=== PATIENT | female | born 1980 | race Caucasian/White ===

== ENCOUNTER 2024-06-09 06:30 | Emergency (ER) | payer OTHER, SELFPAY ==
[2024-06-09 06:32] VITALS: BP 162/96
--- NOTE | 2024-06-09 07:31 | ED.GENMED ---
History of Present Illness
General
Chief Complaint: Vaginal Bleeding
Source: patient
Exam Limitations: none
Time Seen by Provider: 06/09/24 07:21
History of Present Illness
History of Present Illness:
43-year-old female presents with abdominal cramping and abnormal vaginal bleeding. She had a normal cycle between May 23 and May 30 and started bleeding again 4 days ago. She notes heavy bleeding times passing large clots and changing tampons
frequently. She denies lightheadedness or shortness of breath. She does also complain of upper abdominal pain and pain that wraps underneath her ribs. She denies any pleuritic component. Every now and then she also feels some chest discomfort
but this is random. She has been moving her bowels and urinating normally. No fevers. She is on levothyroxine 80 mcg daily.
Past History
Past History
ED Past Medical History: Hypothyroidism
ED Past Surgical History: None
Social History
Tobacco: Non-smoker
Alcohol: None
Drug: None
Personal:
Living: with family
Employment: Employed
Phy Exam
Physical Exam
Physical Exam:
General: Well-appearing female no acute respiratory distress HEENT: Normocephalic atraumatic
Heart: Regular rate and rhythm no murmurs
Lungs: Clear no wheeze or rales
Abdomen is soft slightly tender to the lower abdominal areas bilaterally as well as the epigastric and right upper quadrant. Negative Koch sign. No guarding or rebound.
Extremities: No cyanosis edema
Skin: Warm no rash
Course
Orders/Labs/Results
Orders:
Orders
06/09/24 07:18
Test Result ONCE
06/09/24 07:23
Beta Hcg Serum Qualitative Screen [HCG, Serum Qualitative Screen] Urgent
Complete Blood Count/With Diff Urgent
Comprehensive Metabolic Panel Urgent
Lipase Urgent
06/09/24 07:29
Electrocardiogram (*1) Urgent
Reason for Study: Chest Pain
EKG- Treatment ONCE
US Abdomen Complete/Upper Urgent
Comment:
Reason For Exam: upper abdominal pain
US Pelvis W Transvag Combined Urgent
Comment:
Reason For Exam: abnormal bleeding
06/09/24 07:38
Troponin I Urgent
06/09/24 08:00
0.9% Sodium Chloride 1000 ml [Nss] 1,000 ml IV Wide Open mls/hr
06/09/24 10:42
Urinalysis Reflex To Culture Urgent
Date Specimen was Collected: 06/09/24
Time Specimen was Collected: 10:52
Abnormal Lab Results
06/09/24
07:23
Hct 36.7 L %
(37.0-47.0)
Abs Immat Gran (auto) 0.1 H 10^3/uL
(0-0.05)
Immature Gran % 1.1 H %
(0-0.5)
Glucose 112 H mg/dl
(70-99)
06/09/24 07:23
06/09/24 07:23
Vital Signs
Initial and Last Documented VS:
Initial Vital Signs
Temp Pulse Resp BP Pulse Ox
98.2 F 91 16 162/96 100
06/09/24 06:32 06/09/24 06:32 06/09/24 06:32 06/09/24 06:32 06/09/24 06:32
Last Documented Vital Signs
Temp Pulse Resp BP Pulse Ox
98.2 F 82 17 117/75 97
06/09/24 06:32 06/09/24 10:00 06/09/24 10:00 06/09/24 10:00 06/09/24 10:00
MDM/Problems Addressed
Differential Diagnosis Includes:
Abnormal vaginal bleeding. Consider anemia versus fibroid. Ultrasound pelvis pending. Patient also has upper abdominal pain that may be unrelated to her vaginal bleeding. Gastritis versus biliary colic versus constipation also consideration.
Check labs. Ultrasound pelvis and abdomen pending.
*Critical Care Note
Total Time (30-74mins, 75-104mins- exclusive of procedures): Not Applicable
Update Note
Update Note:
Ultrasound pelvis shows 2 fibroids. Ultrasound abdomen without significant finding. Labs reviewed she is not anemic electrolytes look well. Patient reexamined still looks nontoxic and is stable. I suspect irregular bleeding may be related to the
fibroids however her upper abdominal pain may be related to gastritis. Lipase was normal here. Recommended omeprazole for her abdominal discomfort and recommended gynecology follow-up for her irregular bleeding and fibroids. Stable for discharge.
ED Attending Note
-
Portions of this chart may have been created with voice recognition software.� Occasional wrong word or��sound alike� substitutions may have occurred due to the inherent limitations of voice recognition software.
Discharge Plan
Departure
Patient Disposition: Home (Routine Discharge)
Date of Disposition: 06/09/24
Time of Disposition: 11:01
Patient with high blood pressure during this ER visit?: No
Discharge Problem:
Fibroid, Abdominal pain
Instructions: Uterine fibroids
Prescriptions:
No Action
No Current Medications
0
Referrals:
Annika Lim PA [Family Provider] -
Activity Restrictions/Additional Instructions:
Consider using omeprazole daily for the upper abdominal pain. Please follow-up with your vendor specialist for further evaluation regarding your abnormal bleeding and uterine fibroids
Interventions
Interventions:
*Risk Screen - Suicide Last Done: 06/09/24 07:29
*General Assessment Last Done: 06/09/24 07:29
*Neglect/Abuse Screening Last Done: 06/09/24 07:29
ED- Fall Risk Assessment Last Done: 06/09/24 07:29
ED-Female Genitourinary Assessment Last Done: 06/09/24 07:29
Discharge Date and Time
Print Language: IRISH
[2024-06-09 07:50] LABS: % Basophils 0.9 % (0-2); % Eosinophils 2.4 % (0-6); % Immature Granulocytes 1.1 % (0-0.5); % Lymphocytes 20.5 % (20.5-51.1); % Monocytes 8.5 % (1.7-9.3); % Neutrophils 66.6 % (42.2-75.2); Absolute Basophils 0.1 10^3/uL (0-0.2); Absolute Eosinophils 0.2 10^3/uL (0-0.7); Absolute Immature Granulocytes 0.1 10^3/uL (0-0.05); Absolute Lymphocytes 1.3 10^3/uL (1.2-3.4); Absolute Monocytes 0.6 10^3/uL (0.1-0.6); Absolute Neutrophils 4.4 10^3/uL (1.4-6.5); Hematocrit 36.7 % (37.0-47.0); Hemoglobin 12.3 g/dL (12.0-16.0); Mean Corp Hgb Conc. 33.5 g/dL (33.0-37.0); Mean Corpuscular Hgb 28.5 pg (27.0-31.0); Mean Platelet Volume 9.2 fL (7.4-10.4); Nucleated Red Blood Cells % 0 %; Platelet Count 343 10^3/uL (130-400); Red Blood Cell Count 4.32 10^6/uL (4.20-5.40); Red Cell Dist. Width 14.4 % (11.5-14.5); White Blood Cell Count 6.6 10^3/uL (4.8-10.8)
[2024-06-09] MEDS: NSS 1000 IV (07:50)
[2024-06-09 07:57] LABS: HCG, Serum Qualitative Screen Negative
[2024-06-09 08:00] LABS: ALT (SGPT) 29 U/L (0-35); AST (SGOT) 28 U/L (14-36); Albumin 4.2 g/dl (3.5-5.0); Alkaline Phosphatase 68 U/L (38-126); Blood Urea Nitrogen 12 mg/dl (7-17); Calcium 9.6 mg/dl (8.4-10.2); Carbon Dioxide 25 mmol/L (22-30); Chloride 105 mmol/L (98-107); Glucose 112 mg/dl (70-99); Potassium 4.2 mmol/L (3.5-5.1); Sodium 143 mmol/L (135-145); Total Bilirubin 0.3 mg/dl (0.2-1.3); eGFR > 60.00
[2024-06-09 08:11] LABS: Troponin I < 0.012 ng/ml
[2024-06-09 08:16] LABS: Lipase 43 U/L (23-300)
[2024-06-09 10:00] VITALS: BP 117/75
[2024-06-09 11:14] LABS: Urine Albumin Negative (Neg - Trace); Urine Bilirubin Negative (Negative); Urine Character Clear (Clear); Urine Color Yellow; Urine Glucose Negative (Negative); Urine Ketone Negative (Negative); Urine Leukocyte Negative (Negative); Urine Nitrite Negative (Negative); Urine Occult Blood 1+ (Negative); Urine Specific Gravity 1.005 (<1.030); Urine Urobilinogen Negative (Neg - 1+)
[2024-06-09 12:00] LABS: Urine Red Blood Cell 0-2 /HPF (0-2)
== END 2024-06-09 11:10 | disposition home or self-care (01) ==
LOC: EMR 06:30
PROVIDERS: Physician Assistant; EMERGENCY PHYSICIAN Emergency Medicine; FAMILY PHYSICIAN Physician Assistant Medical
DX: D25.9 Leiomyoma of uterus, unspecified (principal); R10.9 Unspecified abdominal pain; E03.9 Hypothyroidism, unspecified; R07.89 Other chest pain; Z79.890 Hormone replacement therapy
CPT/HCPCS: 99284; 76700; 76830; 76856; 80053; 81003; 81015; 83690; 84484; 84703; 85025; 93005

== ENCOUNTER 2024-07-17 14:52 | Emergency (ER) | payer OTHER, SELFPAY ==
[2024-07-17 14:56] VITALS: BP 134/96
--- NOTE | 2024-07-17 15:25 | ED.GENMED ---
History of Present Illness
General
Chief Complaint: Vaginal Bleeding
Source: patient
Exam Limitations: none
Time Seen by Provider: 07/17/24 15:23
Nursing documentation reviewed up to this point in time: agreed with
History of Present Illness
History of Present Illness:
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 Patient states that she is currently on her period most likely is having
heavy bleeding. Patient states that 2 years ago this all started when she first started having heavier periods. She then noted that in May when she had her period, it was so heavy that when she would walk, she would bleed onto the floor and
would pass many clots. She reported to the emergency department on June 09, 2024 and had a ultrasound done which showed thickened endometrial stripe with causes being possible underlying fibroids or polyps. Patient subsequently had cytotec on
July 14 in prep to have a follow-up hysterosonogram with her OBGYN Dr. Harris on July 16. She noted her bleeding returned after taking the Cytotec and notes that it is heavier than last ER visit and she currently has to use 2-3 pads her
hour. She also notes some mild dizziness. She takes oral iron supplementation. She denies syncopal episodes, chest pain, shortness of breath, nausea or vomiting. Also notes abnormal odor to her discharge within the past few days. Denies chance of
STDs/STIs, denies chance of .
Past History
Past History
ED Past Medical History: Hypothyroidism
ED Past Surgical History: None
Social History
Tobacco: Non-smoker
Alcohol: None
Drug: None
Personal:
Living: with family
Employment: Employed
Review of Systems
Review of Systems
All Other Systems: ROS reviewed and negative except as documented in HPI and ROS
Phy Exam
Physical Exam
Physical Exam:
General: Patient is well appearing and in no acute distress; non-toxic
Skin: Warm and dry, no rashes or lesions
Head: Normocephalic, atraumatic
Eyes: Sclera non-icteric. EOMs intact. PERRLA.
Cardiac: Slightly tachycardic otherwise regular rhythm, no murmurs
Peripheral Vascular: No lower extremity swelling or edema
Pulm: Normal respiratory effort, no wheezes, rales, rhonchi
Abdomen: Mild left-sided lower abdominal tenderness palpation
Genitourinary: Bleeding noted from the introitus. No brisk bleeding. No palpable masses on bimanual exam, left-sided adnexal tenderness.
Neuro: CN II-XII intact, no focal neurologic deficits.
Psychiatric: Appropriate mood and affect.
Course
Orders/Labs/Results
Orders:
Orders
07/17/24 15:01
Electrocardiogram (*1) Urgent
Reason for Study: Chest Pain
EKG- Treatment ONCE
07/17/24 15:24
Test Result ONCE
07/17/24 15:46
Type+Screen Urgent
Complete Blood Count/With Diff Urgent
Comprehensive Metabolic Panel Urgent
HCG, Serum Qualitative Screen Urgent
07/17/24 15:59
0.9% Sodium Chloride 1000 ml [Nss] 1,000 ml IV BOLUS
07/17/24 16:43
Genital Culture Urgent
CONSTANTIN Source: Vagina
Specimen Description:
Date Specimen was Collected: 07/17/24
Time Specimen was Collected: 16:35
07/17/24 17:33
Tranexamic Acid [Cyklokapron] 650 mg PO BID ONE
07/17/24 17:35
Tranexamic Acid [Cyklokapron] 650 mg PO BID ONE
Abnormal Lab Results
07/17/24
15:46
RBC 4.04 L 10^6/uL
(4.20-5.40)
Hgb 11.4 L g/dL
(12.0-16.0)
Hct 34.4 L %
(37.0-47.0)
RDW 14.6 H %
(11.5-14.5)
Abs Immat Gran (auto) 0.1 H 10^3/uL
(0-0.05)
Absolute Neuts (auto) 8.3 H 10^3/uL
(1.4-6.5)
Absolute Monos (auto) 0.7 H 10^3/uL
(0.1-0.6)
Immature Gran % 0.7 H %
(0-0.5)
Neutrophils % 77.7 H %
(42.2-75.2)
Lymphocytes % 13.5 L %
(20.5-51.1)
Carbon Dioxide 21 L mmol/L
(22-30)
Creatinine 0.5 L mg/dL
(0.6-1.0)
07/17/24 15:46
07/17/24 15:46
Vital Signs
Initial and Last Documented VS:
Initial Vital Signs
Temp Pulse Resp BP Pulse Ox
98.7 F 125 20 134/96 99
07/17/24 14:56 07/17/24 14:56 07/17/24 14:56 07/17/24 14:56 07/17/24 14:56
Last Documented Vital Signs
Temp Pulse Resp BP Pulse Ox
98.7 F 91 22 129/81 98
07/17/24 14:56 07/17/24 18:15 07/17/24 18:15 07/17/24 18:00 07/17/24 18:15
MDM/Problems Addressed
Differential Diagnosis Includes:
Differentials include uterine fibroids, menses, uterine polyp, abnormal uterine bleeding, ectopic
MDM/Problems Addressed:
43-year-old female with past medical history of Yan's thyroiditis presents emergency department today with concerns of heavy period. She is used 2-3 pads per hour. Had recent endometrial biopsy done yesterday. Awaiting results. She is due
for her period and has very heavy bleeding. She also felt some dizziness and lightheadedness which concerned her and so she reports emergency department. Today she is well-appearing on exam, she is not pale. She was tachycardic upon arrival to
emergency department but her blood pressure was stable. Her hemoglobin today is 11.4, no indication for blood transfusion at this time. Her CMP is unremarkable. She is not , no concern for ectopic at this time. Did consult OB [facility]
on-call, we did both agree that no further imaging is necessary at this time. Patient was prescribed TXA by Dr. Harris but she was afraid to take it due to the side effects. Did discuss pros and cons of TXA, patient agreed to take it. Patient was
given her first dose today. Patient will continue this medication upon discharge and follow-up with Dr. Harris in the office. Patient also come planed of abnormal vaginal odor recently, did obtain vaginal culture, will call patient with results.
Patient stable for discharge
Chronic conditions affecting care:
Hypothyroidism
Acute Exacerbation and/or Progression of Chronic Illness:
n/a
*Pulse Oximetry
Patient hypoxic: no
*Critical Care Note
Total Time (30-74mins, 75-104mins- exclusive of procedures): Not Applicable
Data Reviewed
Review of Other/Old Records Reveals: Records (ER physician documentation reviewed on 06/09/2024, patient seen for abdominal pain, reviewed ultrasound results for this time there revealed possible fibroids versus)
Source: patient and records
Prescriptions/Medications Considered But Not Given:
n/a
Further Testing Considered But Not Given:
n/a
Patient Management
Escalation/DeEscalation of care consider admission/obs:
Admit not indicated, patient stable for discharge
ED Attending Note
-
Portions of this chart may have been created with voice recognition software.� Occasional wrong word or��sound alike� substitutions may have occurred due to the inherent limitations of voice recognition software.
Discharge Plan
Departure
Patient Disposition: Home (Routine Discharge)
Date of Disposition: 07/17/24
Time of Disposition: 18:16
Patient with high blood pressure during this ER visit?: Yes
Condition: Good
Discharge Problem:
Abnormal vaginal bleeding
Instructions: Heavy Periods (DC), BLOOD PRESSURE
Prescriptions:
No Action
No Current Medications
0
Referrals:
Annika Lim PA [Family Provider] -
Activity Restrictions/Additional Instructions:
Please continue to take tranexamic acid (Lysteda) as prescribed by Dr. Harris. You were given a dose today in the emergency department. The next time you can take this is in 8 hours. Please follow up with Dr. Harris with your biopsy results.
Please return to the emergency department should you experience fainting spells, an acute worsening of your pain, fevers or chills, nausea or vomiting.
Please follow up with your PCP.
Interventions
Interventions:
*Risk Screen - Suicide Last Done: 07/17/24 14:56
*General Assessment Last Done: 07/17/24 14:56
*Neglect/Abuse Screening Last Done: 07/17/24 14:56
ED- Fall Risk Assessment Last Done: 07/17/24 16:00
ED-Female Genitourinary Assessment Last Done: 07/17/24 16:00
Discharge Date and Time
Print Language: KENYAN
[2024-07-17 15:44] VITALS: BP 116/76
[2024-07-17 15:57] LABS: % Basophils 0.7 % (0-2); % Eosinophils 0.9 % (0-6); % Immature Granulocytes 0.7 % (0-0.5); % Lymphocytes 13.5 % (20.5-51.1); % Monocytes 6.5 % (1.7-9.3); % Neutrophils 77.7 % (42.2-75.2); Absolute Basophils 0.1 10^3/uL (0-0.2); Absolute Eosinophils 0.1 10^3/uL (0-0.7); Absolute Immature Granulocytes 0.1 10^3/uL (0-0.05); Absolute Lymphocytes 1.4 10^3/uL (1.2-3.4); Absolute Monocytes 0.7 10^3/uL (0.1-0.6); Absolute Neutrophils 8.3 10^3/uL (1.4-6.5); Hematocrit 34.4 % (37.0-47.0); Hemoglobin 11.4 g/dL (12.0-16.0); Mean Corp Hgb Conc. 33.1 g/dL (33.0-37.0); Mean Corpuscular Hgb 28.2 pg (27.0-31.0); Mean Corpuscular Volume 85.1 fL (81.0-99.0); Mean Platelet Volume 9.3 fL (7.4-10.4); Nucleated Red Blood Cells % 0 %; Platelet Count 327 10^3/uL (130-400); Red Blood Cell Count 4.04 10^6/uL (4.20-5.40); Red Cell Dist. Width 14.6 % (11.5-14.5); White Blood Cell Count 10.7 10^3/uL (4.8-10.8)
[2024-07-17 16:00] VITALS: BP 128/79; BMI 41.9
[2024-07-17 16:10] LABS: HCG, Serum Qualitative Screen Negative
[2024-07-17 16:14] LABS: ALT (SGPT) 27 U/L (0-35); AST (SGOT) 27 U/L (14-36); Albumin 4.3 g/dl (3.5-5.0); Alkaline Phosphatase 56 U/L (38-126); Blood Urea Nitrogen 11 mg/dl (7-17); Calcium 9.5 mg/dl (8.4-10.2); Carbon Dioxide 21 mmol/L (22-30); Chloride 103 mmol/L (98-107); Estimated Creatinine Clearance > 125 ml/min; Glucose 98 mg/dl (70-99); Potassium 4.1 mmol/L (3.5-5.1); Sodium 141 mmol/L (135-145); Total Bilirubin 0.4 mg/dl (0.2-1.3); Total Protein 6.9 g/dl (6.3-8.2); eGFR > 60.00
[2024-07-17] MEDS: NSS 1000 IV (16:22)
[2024-07-17 17:00] VITALS: BP 124/79
[2024-07-17] MEDS: CYKLOKAPRON 650 MG PO ×2 (17:51)
[2024-07-17 18:00] VITALS: BP 129/81
== END 2024-07-17 18:45 | disposition home or self-care (01) ==
LOC: EMR 14:52
PROVIDERS: Physician Assistant; EMERGENCY PHYSICIAN Emergency Medicine; FAMILY PHYSICIAN Physician Assistant Medical
DX: N93.9 Abnormal uterine and vaginal bleeding, unspecified (principal); R42 Dizziness and giddiness; R10.2 Pelvic and perineal pain; R10.30 Lower abdominal pain, unspecified; R00.0 Tachycardia, unspecified; R03.0 Elevated blood-pressure reading, without diagnosis of hypertension; E06.3 Autoimmune thyroiditis; M43.22 Fusion of spine, cervical region; Z79.899 Other long term (current) drug therapy; Z88.1 Allergy status to other antibiotic agents
CPT/HCPCS: 99284; 96360; 80053; 84703; 85025; 86850; 86900; 86901; 87070; 93005